=== PATIENT | female | born 1965 | race Caucasian/White ===

== ENCOUNTER 2024-07-14 12:07 | Emergency (ER) | payer OTHER, SELFPAY ==
[2024-07-14 12:13] VITALS: BP 154/94; PULSE 79; TEMP 36.8; O2SAT 95; BMI 39.8
--- NOTE | 2024-07-14 12:29 | ED.WOUNDLAC1 ---
HPI - Wound/Laceration General Chief Complaint: Wound/Laceration Stated Complaint: LACERATION Time Seen by Provider: 07/14/24 12:10 Source: patient Mode of arrival: walk-in Limitations: no limitations History of Present Illness HPI narrative: 58-year-old female presents to the emergency department for laceration to the left ring finger. Just before coming into the emergency department she reached into a sink and came into contact with a knife that was in the sink. There was some bleeding so she came in to get checked. She is up-to-date on her tetanus status. No other injuries were sustained. No weakness or numbness. Related Data Allergies Allergy/AdvReac Type Severity Reaction Status Date / Time No Known Drug Allergies Allergy Verified 07/14/24 12:17 Review of Systems ROS Narrative A ten point review of systems is negative except as noted above. PFSH PFSH Social History Little interest or pleasure in doing things: not at all Feeling down, depressed, or hopeless: not at all Exam Narrative Exam Narrative: Nurses note and vital signs reviewed and patient is not hypoxic. General: The patient appears well and in no apparent distress. Patient is resting comfortably on cart. Skin: Warm, dry, no pallor noted. There is no rash noted. Head: Normocephalic, atraumatic Eye: Normal conjunctiva, no drainage Ears, Nose, Mouth, and Throat: oral mucosa is moist. Nares patent. Cardiovascular: Regular Rate and Rhythm Respiratory: Patient is in no distress, no accessory muscle use Back: non-tender GI: Nontender Musculoskeletal: The left hand is examined and there is a single 1 cm laceration on the extensor side of the left fourth finger at the DIP joint area. DIP has full range of motion. The nail and nailbed are unaffected. Neurological: A&O, normal speech Psychiatric: Cooperative Constitutional Vital Signs, click to edit/add: Last Vital Signs Temp 98.3 F 07/14/24 12:13 Pulse 79 07/14/24 12:13 Resp 20 07/14/24 12:13 BP 154/94 H 07/14/24 12:13 Pulse Ox 95 07/14/24 12:13 O2 Del Method Room Air 07/14/24 12:13 Course Vital Signs Vital signs: Vital Signs Temperature 98.3 F 07/14/24 12:13 Pulse Rate 79 07/14/24 12:13 Respiratory Rate 20 07/14/24 12:13 Blood Pressure 154/94 H 07/14/24 12:13 Pulse Oximetry 95 07/14/24 12:13 Oxygen Delivery Method Room Air 07/14/24 12:13 Temperature 98.3 F 07/14/24 12:13 Pulse Rate 79 07/14/24 12:13 Respiratory Rate 20 07/14/24 12:13 Blood Pressure 154/94 H 07/14/24 12:13 Pulse Oximetry 95 07/14/24 12:13 Oxygen Delivery Method Room Air 07/14/24 12:13 MDM - Wound/Laceration MDM Narrative Medical decision making narrative: Sutures are not necessary. Steri-Strips and tube gauze applied. Application checked by me and found to be appropriate, she is neurovascular intact. She was sent home with a finger splint that she will apply when she removes the tube gauze in 2 days. Treatment diagnosis and follow-up were discussed with the patient and her family. There is no tendon injury. Differential Diagnosis Differential diagnosis: Likely laceration Discharge Plan Discharge Chief Complaint: Wound/Laceration Clinical Impression: Laceration Patient Disposition: Home, Self-Care Time of Disposition Decision: 12:28 Condition: Good Mode of Transportation: Private Vehicle Print Language: [place] Instructions: Laceration Without Closure (ED) Additional Instructions: Leave tube gauze on for 48 hours. After removal, wear splint for at least a week.
== END 2024-07-14 12:42 | disposition home or self-care (01) ==
LOC: ER 12:46
PROVIDERS: Emergency Provider Emergency Medicine
DX: S61.215A Laceration without foreign body of left ring finger without damage to nail, initial encounter (principal); W26.0XXA Contact with knife, initial encounter
CPT/HCPCS: 99283